=== PATIENT | male | born 1975 | race Two or more races ===

== ENCOUNTER 2020-11-19 15:32 | Emergency (ER) | payer MEDICARE, MEDICAID ==
[~2020-11-19] VITALS: Ht 172.7 cm; Wt 66.0 kg
[2020-11-19 15:35] VITALS: BP 131/65
[2020-11-19] MEDS ORDERED: TETANUS, DIPHTHERIA, PERTUSSIS VAC/PF 0.5ML (>7YR OLD) IM ONE (16:15)
[2020-11-19] MEDS ORDERED: ACETAMINOPHEN 325MG TABLET PO ONE (16:30)
[2020-11-19 17:04] LABS: HEMATOCRIT. 30.3 % (42.0-52.0); MEAN CORPUSCULAR HEMOGLOBIN 29.8 pg (28.0-32.0); MEAN CORPUSCULAR VOLUME 90.2 fL (80.0-94.0); MEAN PLATELET VOLUME 7.3 fl (7.4-10.4); PLATELET 199 x1000/uL (130-400); RED BLOOD CELL COUNT 3.35 mill/uL (4.7-6.1); RED CELL DISTRIBUTION WIDTH 16.1 % (11.6-14.6)
[2020-11-19 17:14] LABS: INR 1.2; PARTIAL THROMBOPLASTIN TIME 33.6 sec (23.4-31.0); PROTHROMBIN TIME 12.6 sec (9.6-11.0)
[2020-11-19 17:30] LABS: CHLORIDE 105 mEq/L (98-107)
[2020-11-19 17:34] LABS: ETHANOL BLOOD < 10 mg/dL
[2020-11-19] MEDS ORDERED: IBUP-2028 MT (18:03)
[2020-11-19 19:59] LABS: PLATELET ESTIMATE NORMAL
== END 2020-11-19 18:53 | disposition home or self-care (01) ==
LOC: ER 15:32
DX: S00.83XA Contusion of other part of head, initial encounter (principal); R94.5 Abnormal results of liver function studies; W07.XXXA Fall from chair, initial encounter; Y93.89 Activity, other specified; Y92.89 Other specified places as the place of occurrence of the external cause
CPT/HCPCS: 36415; 71045; 80053; 80320; 85025; 90715; 93005; 99285; G0480